=== PATIENT | female | born 1995 | race Caucasian/White ===

== ENCOUNTER 2019-07-11 17:56 | Emergency (ER) | payer OTHER ==
[~2019-07-11] VITALS: Ht 170.2 cm; Wt 56.7 kg
== END 2019-07-11 23:14 | disposition home or self-care (01) ==
LOC: ER 17:56
DX: J06.9 Acute upper respiratory infection, unspecified (principal); M26.69 Other specified disorders of temporomandibular joint; B96.0 Mycoplasma pneumoniae [M. pneumoniae] as the cause of diseases classified elsewhere